=== PATIENT | female | born 1980 | race African-American/Black ===

== ENCOUNTER 2016-04-07 19:44 | Emergency (ER) | payer MEDICAID ==
[~2016-04-07] VITALS: Ht 162.6 cm; Wt 78.5 kg
[~2016-04-07 19:44] MED LIST: KEFLEX500 MG PO; MACROBID100 MG ORAL; NORCO 5-325 TA1 EACH PO
[2016-04-07] MEDS ORDERED: LISINOPRIL10 MG ORAL (20:04)
[2016-04-07] MEDS ORDERED: Ketorolac 60mg Inj IM ONE (20:15)
[2016-04-07 20:38] VITALS: BP 159/99
[2016-04-07] MEDS ORDERED: CYCLOBENZAPRINE10 MG ORAL (21:42)
[2016-04-07] MEDS ORDERED: IBUPROFEN600 MG ORAL (21:42)
[2016-04-07 21:45] VITALS: BP 159/99
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
== END 2016-04-07 21:45 | disposition home or self-care (01) ==
LOC: EMR 20:46
DX: S16.1XXA Strain of muscle, fascia and tendon at neck level, initial encounter (principal); S39.012A Strain of muscle, fascia and tendon of lower back, initial encounter; V43.62XA Car passenger injured in collision with other type car in traffic accident, initial encounter; Y92.410 Unspecified street and highway as the place of occurrence of the external cause; Y99.8 Other external cause status; I10 Essential (primary) hypertension; Z88.3 Allergy status to other anti-infective agents; Z88.0 Allergy status to penicillin
CPT/HCPCS: 72020; 72125; 81025; 96372; 99283

== ENCOUNTER 2016-08-05 16:02 | Emergency (ER) | payer MEDICAID ==
[~2016-08-05] VITALS: Ht 162.6 cm; Wt 77.1 kg
[~2016-08-05 16:02] MED LIST changes: +CYCLOBENZAPRINE10 MG ORAL; +IBUPROFEN600 MG ORAL; +LISINOPRIL10 MG ORAL
[2016-08-05 16:13] VITALS: BP 134/82
[2016-08-05] MEDS ORDERED: HYDROCHLOROTH12.5 MG ORAL (16:17)
[2016-08-05] MEDS ORDERED: AMLODIPINE BESYL5 MG ORAL (16:17)
--- NOTE | 2016-08-05 16:59 | Emergency Room Report ---
History of Present Illness General Chief Complaint: Headache Source: Patient Present Illness HPI 36 YO Female presents to the ED c/o frontal pressure RAY no relief from OTC Tylenol and Motrin x 1 week. no fevers, reports chills, fatigue, denies cough She reports one episode of loose stools following 3 nights of drinking. She denies abdominal pain, nausea, vomiting or blood in the stool. Patient denies dizziness she reports 8/10 in severity dull aching pain that is intermittent. And described as slow progressive onset. Patient reports general fatigue. Denies recent travel or ill contacts denies recent illness.Denies , frequency or urgency. denies hx of migraines. Denies CP, Palpitations, LOC, AMS , dizziness, Changes in Vision, Sensation, paresthesias, or a sudden severe headache. Denies neck pain or stiffness. Allergies: Coded Allergies: CIPROFLOXACIN (Verified Allergy, Unknown, 02/11/11) PENICILLINS (Verified Allergy, Unknown, 02/11/11) Patient History Past Medical History: see triage record Past Surgical History: none Pertinent Family History: none Last Menstrual Period: 07/13/16 Now: No Reviewed Nursing Documentation: PMH: Agreed, PSxH: Agreed Nursing Documentation-PMH Past Medical History: No History, Except For Hx Hypertension: Yes Review of Systems All Other Systems: negative except mentioned in HPI Physical Exam Vital Signs Date Time Temp Pulse Resp B/P Pulse Ox O2 Delivery O2 Flow Rate FiO2 08/05/16 16:13 98.4 130 15 134/82 96 Room Air Sp02 EP Interpretation: reviewed, abnormal - pt. is tachycardic at 130 General Appearance: no apparent distress, alert, GCS 15, non-toxic Head: normocephalic, atraumatic Eyes: bilateral eye EOMI, bilateral eye PERRL, bilateral eye normal inspection ENT: hearing grossly normal, normal pharynx, no angioedema, normal voice Neck: full range of motion, supple/symm/no masses Respiratory: chest non-tender, lungs clear, normal breath sounds, speaking full sentences Cardiovascular #1: regular rate, rhythm, no edema, normal capillary refill, tachycardia Gastrointestinal: normal bowel sounds, non tender, soft, no mass, non-distended , no guarding, no rebound, other - Negative [place] signs, Negative MacBurney's sign, Negative Rosvigns Sign, Negative Psoas, No Peritoneal signs. Rectal: deferred Genitourinary: normal inspection, no CVA tenderness Musculoskeletal: back normal, gait/station normal, normal range of motion, non- tender, no calf tenderness Neurologic: alert, oriented x3, responsive, motor strength/tone normal, sensory intact, speech normal Psychiatric: judgement/insight normal, memory normal, mood/affect normal Skin: normal color, no rash, warm/dry Lymphatic: no adenopathy Medical Decision Making PA Attestation Dr. Anderson is my supervising Physician whom patient management has been discussed with. Diagnostic Impression: Primary Impression: Dehydration, mild Additional Impression: Head ache Qualified Codes: R51 - Headache ER Course 36 YO Female presents to the ED c/o frontal pressure RAY no relief from OTC Tylenol and Motrin x 1 week. no fevers, reports chills, fatigue, denies cough She reports one episode of loose stools following 3 nights of drinking. She denies abdominal pain, nausea, vomiting or blood in the stool. Patient denies dizziness she reports 8/10 in severity dull aching pain that is intermittent. And described as slow progressive onset. Patient reports general fatigue. Denies recent travel or ill contacts denies recent illness.Denies , frequency or urgency. denies hx of migraines. Ddx considered but are not limited to migraine, SAH, Psedudo motor Cerebri, Mass lesion, Cluster RAY, Tension RAY, , UTI, dehydration Vital signs: are WNL, pt. is afebrile H&PE are most consistent with gastritis and mild dehydration, will r/o UTI and . ORDERS: -UA: Unremarkable -Urine Hcg:Negative -UDS: positive for THC -Ortho Static VS: positive. ED INTERVENTIONS: - Reglan PO 10mg -IM Toradol DISCHARGE: At this time pt. is stable for d/c to home. Will provide printed patient care instructions, and any necessary prescriptions. Care plan and follow up instructions have been discussed with the patient prior to discharge. Orthostatic positive. 1 liter NS Labs Test 08/05/16 17:00 Urine Color Pale yellow Urine Appearance Clear Urine pH 5 (4.5-8.0) Urine Specific [place] 1.010 (1.005-1.035) Urine Protein 1+ (NEGATIVE) Urine Glucose (UA) Negative (NEGATIVE) Urine Ketones 1+ (NEGATIVE) Urine Occult Blood 2+ (NEGATIVE) Urine Nitrite Negative (NEGATIVE) Urine Bilirubin Negative (NEGATIVE) Urine Urobilinogen Normal MG/DL (0.0-1.0) Urine Leukocyte Esterase 1+ (NEGATIVE) Urine RBC 5-10 /HPF (0 - 2) Urine WBC 2-4 /HPF (0 - 2) Urine Squamous Epithelial Cells Few /LPF (NONE/OCC) Urine Bacteria Few /HPF (NONE) Urine HCG, Qualitative Negative Urine Opiates Screen Negative (NEGATIVE) Urine Barbiturates Screen Negative (NEGATIVE) Phencyclidine (PCP) Screen Negative (NEGATIVE) Urine Amphetamines Screen Negative (NEGATIVE) Urine Benzodiazepines Screen Negative (NEGATIVE) Urine Cocaine Screen Negative (NEGATIVE) Urine Marijuana (THC) Screen Positive (NEGATIVE) Last Vital Signs Date Time Temp Pulse Resp B/P Pulse Ox O2 Delivery O2 Flow Rate FiO2 08/05/16 16:13 98.4 130 15 134/82 96 Room Air Disposition: HOME, SELF-CARE Condition: Stable Scripts Acetaminophen* (TYLENOL EXTRA STRENGTH*) 500 Mg Tablet 500 MG ORAL Q6H, #20 TAB 0 Refills Prov: Yvonne Pink 08/05/16 Patient Instructions: Dehydration, Adult, [id number], General Headache Without Cause, [id number] Additional Instructions: Take medications as directed. Follow up with PCP in 3 days. if symptoms return neurology consult is recommended Return sooner to ED if new symptoms occur, or current symptoms become worse. - Please note that this Emergency Department Report was dictated using [email or web address] efficient aircraft designer technology software, occasionally this can lead to erroneous entry secondary to interpretation by the dictation equipment. Yvonne Pink August 05, 2016 16:59
[2016-08-05] MEDS ORDERED: Metoclopramide 10mg/10ml Liq ORAL ONE (17:00)
[2016-08-05] MEDS ORDERED: Ketorolac 60mg Inj IM ONE (17:00)
[2016-08-05] MEDS ORDERED: Ketorolac 30mg Inj IV ONE (17:15)
[2016-08-05 17:23] VITALS: BP 113/87
[2016-08-05 17:24] VITALS: BP_SYST 108; BP_SYST 126; BP_DIAS 75; BP_DIAS 85
[2016-08-05 17:42] LABS: APPEARANCE,URINE CLEAR; KETONES,URINE 1+ (NEGATIVE); LEUKOCYTE ESTERASE ,URINE 1+ (NEGATIVE); NITRITE,URINE NEGATIVE (NEGATIVE); PH,URINE 5 (4.5-8.0); PROTEIN,URINE 1+ (NEGATIVE); UROBILINOGEN,URINE NORMAL MG/DL (0.0-1.0)
[2016-08-05 17:55] LABS: BACTERIA,URINE FEW /HPF; SQUAMOUS EPITHELIAL CELL,UR FEW /LPF (NONE/OCC)
[2016-08-05] MEDS ORDERED: TYLENOL EXTRA500 MG ORAL (19:01)
[2016-08-05 19:26] VITALS: BP 112/76
== END 2016-08-05 19:29 | disposition home or self-care (01) ==
LOC: EMR 17:43
DX: E86.0 Dehydration (principal); R51 Headache; I10 Essential (primary) hypertension; Z88.0 Allergy status to penicillin; Z88.1 Allergy status to other antibiotic agents
CPT/HCPCS: 80300; 81003; 81025; 96360; 96374